=== PATIENT | female | born 1990 | race Caucasian/White ===

== ENCOUNTER 2017-02-07 09:21 | Outpatient (CLI) | payer MEDICAID ==
[~2017-02-07] VITALS: Ht 144.8 cm; Wt 50.9 kg
[~2017-02-07 09:21] MED LIST: CALC60TA2 PO; FERR240T9 PO; IBUP800T25 PO; NITR-58 PO; PREN1TAB79 PO
[2017-02-07 09:41] VITALS: Ht 144.8 cm; Wt 50.9 kg
[2017-02-07 09:43] VITALS: BP 104/60; PULSE 62; RESP 20
[2017-02-07 10:51] LABS: ADD UMIC YES; UR AMORPHOUS CRYSTAL MANY /HPF (NONE SEEN); UR ASCORBIC ACID NEGATIVE (NEGATIVE); UR BILIRUBIN (Dip) NEGATIVE (NEGATIVE); UR BLOOD (Dip) NEGATIVE (NEGATIVE); UR CLARITY CLOUDY (CLEAR); UR COLOR YELLOW (YELLOW); UR GLUCOSE (Dip) NEGATIVE (NEGATIVE); UR KETONES (Dip) NEGATIVE (NEGATIVE); UR LEUKOCYTE ESTERASE (Dip) 1+ Leu/ul (NEGATIVE); UR MUCUS FEW /HPF (NONE SEEN); UR NITRITE (Dip) NEGATIVE (NEGATIVE); UR RBC 3 /HPF (0-5); UR SPECIFIC GRAVITY (Dip) 1.014 (1.003-1.030); UR SQUAMOUS EPITHELIAL CELL FEW /HPF (FEW); UR TOTAL PROTEIN (Dip) NEGATIVE (NEGATIVE); UR UROBILINOGEN (Dip) NEGATIVE (NEGATIVE)
--- NOTE | 2017-02-07 11:48 | TRIAGE ---
OB Triage Datetime Report Generated by CPN: 02/07/2017 11:48 Datetime: 02/07/2017 11:35 Comments: EFM OFF/D/C INSTR GIVEN SEE TRIAGE NOTE Datetime: 02/07/2017 11:00 Stage of : OB Triage Labor Evaluation Frequency: IRRITABILITIES Monitor Mode: External Duration (sec)2399: 5-10 Resting Tone [place]: Relaxed Pain Assessment Pain Scale: 9 Datetime: 02/07/2017 09:55 Vaginal Exam Dilatation (cms): 0.0 Effacement (%): 0 Station: -3 Exam By: L ELVA Vaginal Bleeding: None Cervix, Consistency: Firm Cervix, Position: Posterior Datetime: 02/07/2017 09:50 Stage of : OB Triage Datetime: 02/07/2017 09:40 EGA: 19.5 Datetime: 02/07/2017 09:26 Stage of : OB Triage Labor Evaluation Frequency: IRREG Monitor Mode: External Duration (sec)2399: 10 Heart Rate FHR Baseline Rate: 148 Monitor Mode: External US Pain Assessment Pain Scale: 9 Datetime: 02/07/2017 09:14 Time of Arrival: 02/07/2017 09:14 Chief Complaint: CRAMPING SINCE 6 AM Movement: Present Contractions: Regular Time Contractions Began: 02/07/2017 06:00 Contractions: 10 Rupture of Membranes: Denies Vaginal Bleeding: None Vaginal Discharge: Denies Recent Sexual Intercouse: Denies Abdominal Trauma: Not Applicable Patient Complaints: Contractions Time Provider Notified: 02/07/2017 09:50 Provider Notified: Rogerio Initial Plan: FHT/UA/ 0955 PT GIVEN WATER ENCOURAGED TO DRINK MORE WATER
--- NOTE | 2017-02-07 13:38 | PN ---
Triage Information Date/Time 26 years old female 2 para 119 weeks and 5 days came to triage complaining of cramping heart rate 148 size consistent with dates blood pressure 104/60 pulse 62 respiration 20 temperature 98.2 she was hydrated adequately cramping to slow down patient discharged with recommendation of 6-8 glasses of water a day and follow-up with the [facility] Weeks of Gestation 19 weeks and 5 : 2 Para: 1 Diabetes: none Hypertention: none Objective Vital Signs Date Time Temp Pulse Resp B/P Pulse Ox O2 Delivery O2 Flow Rate FiO2 02/07/17 09:43 98.2 62 20 104/60 97 Room Air Heart Rate: 140's Exam Uterine irritability consistent with 19-20 weeks Results/Medications Results 24 hrs Laboratory Tests Test 02/07/17 09:35 Urine Color YELLOW Urine Clarity CLOUDY A Urine pH 7.0 Urine Specific [place] 1.014 Urine Ketones NEGATIVE Urine Nitrite NEGATIVE Urine Bilirubin NEGATIVE Urine Urobilinogen NEGATIVE Urine Leukocyte Esterase 1+ H Urine Microscopic RBC 3 Urine Microscopic WBC 3 Urine Squamous Epithelial Cells FEW Urine Amorphous Crystals MANY A Urine Mucus FEW A Urine Hemoglobin NEGATIVE Urine Glucose NEGATIVE Urine Total Protein NEGATIVE Assessment/Plan 19 weeks 5 days uterine irritability recommended 6-8 glasses of water and follow-up with the clinic JEAN BALDERAS MD Feb 07, 2017 13:38
== END 2017-02-07 11:40 | disposition home or self-care (01) ==
LOC: OBT 09:21 → L-D 09:21 → OBT 11:40
PROVIDERS: ATTEND Obstetrics & Gynecology
DX: O26.892 Other specified pregnancy related conditions, second trimester (principal); Z3A.19 19 weeks gestation of pregnancy; R10.9 Unspecified abdominal pain
CPT/HCPCS: 81001; Z7500; G0463

== ENCOUNTER 2017-06-21 10:41 | Inpatient (IN) | payer MEDICAID ==
[~2017-06-21] VITALS: Ht 149.9 cm; Wt 60.0 kg
[~2017-06-21 10:41] MED LIST changes: -IBUP800T25 PO; -NITR-58 PO
[2017-06-21] MEDS ORDERED: LACTATED RINGER'S 1,000 ML IV SCH (10:50)
--- NOTE | 2017-06-21 10:53 | TRIAGE ---
OB Triage Datetime Report Generated by CPN: 06/21/2017 10:53 Datetime: 06/21/2017 10:33 Maternal Assessment Level of Consciousness: Fully Conscious DTR's/Clonus: DTRs 2+; No Clonus Headache: Denies Blurred Vision: No Respiratory Effort: Unlabored; Regular Rhythm; Equal Expansion Breath Sounds, Left: Clear and Equal Breath Sounds, Right: Clear and Equal Nausea/Vomiting: Denies RUQ Epigastric Pain: Denies Facial Edema: None Fall Risk Assessment History of Falling: (0) No Secondary Diagnosis: (0) No Ambulatory Aid: (0) Bedrest/Nurse Assist IV Therapy: (0) No Gait: (0) Normal/Bedrest/Immobile Mental Status: (0) Oriented to Own Ability Fall Score: 0 Fall Risk Score Definition: No Risk: No action required Datetime: 06/21/2017 10:30 Time of Arrival: 06/21/2017 10:30 Arrived By: Wheelchair Arrived From: Home Chief Complaint: 39 WEEKS CAME IN C/O UC'S SINCE THIS MORNING AT 0800. PT UNCOMFORTABLE. Movement: Present Contractions: Regular Time Contractions Began: 06/21/2017 08:00 Contractions: 5 MIN Rupture of Membranes: Denies Vaginal Discharge: Denies Recent Sexual Intercouse: Denies Abdominal Trauma: Not Applicable Additional Patient Complaints: NONE Time Provider Notified: 06/21/2017 10:35 Provider Notified: ANDREY Initial Plan: VE
[2017-06-21 10:55] VITALS: BP 128/66; PULSE 64; RESP 18
[2017-06-21 10:56] VITALS: Ht 149.9 cm; Wt 60.0 kg
[2017-06-21 11:00] LABS: BASOPHILS % 0.2 % (0.0-2.0); EOSINOPHILS # 0.1 10^3/ul (0.0-0.5); EOSINOPHILS % 0.6 % (0.0-7.0); HEMATOCRIT 40.1 % (37.0-47.0); HEMOGLOBIN 13.7 g/dl (12.0-16.0); LYMPHOCYTES # 2.5 10^3/ul (0.8-2.9); LYMPHOCYTES % 23.1 % (15.0-51.0); MEAN CORPUSCULAR HEMOGLOBIN 28.1 pg (29.0-33.0); MEAN CORPUSCULAR HGB CONC 34.2 g/dl (32.0-37.0); MEAN CORPUSCULAR VOLUME 82.3 fl (82.0-101.0); MONOCYTE # 0.5 10^3/ul (0.3-0.9); MONOCYTES % 4.8 % (0.0-11.0); NEUTROPHIL # 7.6 10^3/ul (1.6-7.5); NEUTROPHILS % 70.9 % (39.0-77.0); PLATELET COUNT 201 10^3/UL (140-415); RED BLOOD COUNT 4.87 10^6/ul (4.20-5.40); RED CELL DISTRIBUTION WIDTH 15.1 % (11.5-14.5); WHITE BLOOD COUNT 10.7 10^3/ul (4.8-10.8)
[2017-06-21] MEDS ORDERED: AMPICILLIN 2 GM/NS (PMX) 100 ML IV ONE (11:00)
[2017-06-21] MEDS ORDERED: OXYTOCIN 30 UNITS/LR 500 ML IV PRN ×2 (11:00→15:30)
[2017-06-21] MEDS ORDERED: BUTORPHANOL 2 MG INJ IV PRN (11:00)
[2017-06-21] MEDS ORDERED: LIDOCAINE 1% (MPF) 30 ML INJ INJ PRN (11:00)
[2017-06-21] MEDS ORDERED: METHYLERGONOVINE 0.2 MG INJ IM PRN ×2 (11:00→15:30)
[2017-06-21] MEDS ORDERED: CARBOPROST 250 MCG INJ IM PRN ×2 (11:00→15:30)
[2017-06-21] MEDS ORDERED: HYDROCODONE/APAP (5/325) TAB PO PRN (11:00)
[2017-06-21] MEDS ORDERED: IBUPROFEN 600 MG TAB PO PRN (11:00)
[2017-06-21] MEDS ORDERED: MISOPROSTOL 200 MCG TAB PR PRN ×2 (11:00→15:30)
[2017-06-21] MEDS: OXYTOCIN 30 UNITS/LR 500 ML IV SCH ×2 (11:05→11:22)
[2017-06-21 11:26] LABS: INR 0.94; PROTIME 12.7 Sec (11.9-14.9)
[2017-06-21 11:27] LABS: PARTIAL THROMBOPLASTIN TIME 29.4 Sec (25.0-35.0)
--- NOTE | 2017-06-21 11:40 | HP ---
Date/Time of Note Date/Time of Note DATE: 06/21/17 TIME: 11:31 OB - History Hx of Present Free Text/Dictation June 21, 2017 OB history and physical This patient is a 26 years old 2 para 1 with estimated date of confinement of June 29, 2017 which makes her 38 weeks and 6 days. She came in labor and delivery area in active labor. In reviewing her past medical history she had 1 spontaneous vaginal delivery in the past. No major medical condition was mentioned in her chart no surgeries no allergy Estimated Due Date: Jun 29, 2017 : 2 Para: 1 Care: Good Care Obstetrical Complications: None Medical Complications: None Past Family/Social History * Past Medical, Surgical, Family and Obstetric Histories reviewed from chart. OB Admission Exam Vital Signs Vital Signs Vital Signs Date Time Temp Pulse Resp B/P Pulse Ox O2 Delivery O2 Flow Rate FiO2 06/21/17 10:55 98.7 64 18 128/66 99 Room Air Physical Exam HEENT: WNL Heart: Rhythm Normal Lungs: Clear Abdomen: WNL Extremities: Normal Reflexes: Normal Cervical Dilatation: 9cm Effacement: 100% Station: 0 Membranes: Intact Amniotic Fluid: Clear Heart Rate: 140's Accelerations: Accelerations Present (22184) Decelerations: No Decelerations Varibility: Moderate Contractions on Admission: < 5 Minutes Apart Intensity: Moderate Last 72 hours Lab Results CBC & BMP 06/21/17 10:14 OB Assessment/Plan Reason for admission: active labor Other plan: Laboratory Tests Test 06/21/17 10:14 White Blood Count 10.710^3/ul Red Blood Count 4.8710^6/ul Hemoglobin 13.7g/dl Hematocrit 40.1% Mean Corpuscular Volume 82.3fl Mean Corpuscular Hemoglobin 28.1pg Mean Corpuscular Hemoglobin Concent 34.2g/dl Red Cell Distribution Width 15.1% Platelet Count 74578^3/UL Mean Platelet Volume 11.0fl Neutrophils % 70.9% Lymphocytes % 23.1% Monocytes % 4.8% Eosinophils % 0.6% Basophils % 0.2% Nucleated Red Blood Cells % 0.0/100WBC Neutrophils # 7.610^3/ul Lymphocytes # 2.510^3/ul Monocytes # 0.510^3/ul Eosinophils # 0.110^3/ul Basophils # 0.010^3/ul Nucleated Red Blood Cells # 0.010^3/ul Prothrombin Time 12.7Sec Prothrombin Time Ratio 1.0 INR International Normalized Ratio 0.94 Activated Partial Thromboplast Time 29.4Sec Current Medications Medications (Trade) Dose Ordered Sig/Joey Route PRN Reason Start Time Stop Time Status Last Admin Dose Admin Lactated Ringer's 1,000 ml @ 125 mls/hr Q8H IV 06/21/17 10:50 06/21/17 11:05 Ampicillin (Ampicillin 2 Gm/ NS (Pmx)) 100 ml @ 100 mls/hr ONCE ONCE IV 06/21/17 11:00 06/21/17 11:59 Butorphanol Tartrate (Stadol) 2 mg Q2H PRN IV PAIN 06/21/17 11:00 Lidocaine 30 ml 30 ml ONCE PRN INJ EPISIOTOMY/TEARING 06/21/17 11:00 Oxytocin/Lactated Ringer's 500 ml @ 125 mls/hr ONCE IV 06/21/17 11:00 06/21/17 11:22 Ibuprofen (Motrin) 600 mg ONCE PRN PO Mild Pain (Pain Score 1-3) 06/21/17 11:00 Acetaminophen/ Hydrocodone Bitart 2 tab 2 tab ONCE PRN PO Moderate to Severe Pain (4-10) 06/21/17 11:00 Oxytocin/Lactated Ringer's 500 ml @ 0 mls/hr ONCE PRN IV For Hemorrhage Management 06/21/17 11:00 Methylergonovine Maleate (Methergine) 0.2 mg ONCE PRN IM VAGINAL BLEEDING 06/21/17 11:00 Carboprost Tromethamine (Hemabate) 250 mcg ONCE PRN IM VAGINAL BLEEDING 06/21/17 11:00 Misoprostol (Cytotec) 1,000 mcg ONCE PRN CA VAGINAL BLEEDING 06/21/17 11:00 PAPA LLOYD MD Jun 21, 2017 11:40
--- NOTE | 2017-06-21 12:14 | LDN ---
Date/Time of Note Date/Time of Note DATE: 06/21/17 TIME: 12:08 Delivery Summary Normal spontaneous vaginal delivery of a baby girl from OA position shoulders delivered with no difficulty rest of the baby's body followed cord clamped after stopped pulsation placenta spontaneous expulsion inspected complete. Perineal and vaginal inspection no laceration, at the end of procedures uterus was firm, bleeding 200 cc, patient received 30 units of Pitocin through the IV infusion. Weeks of Gestation 38 weeks 6 day Placenta Delivered: Spontaneously Meconium: none Episiotomy: No Laceration repair: None Anesthesia type: None Sponge & Needle done & correct: Yes All needle counts correct: Yes Any foreign bodies felt in the: No Problems: Infant Delivery Information Sex Sex: female Apgars 1 Minute: 9 5 Minute: 9 Suctioning Nose & mouth suctioned at david: Yes Delee suction performed: No Umbilical Cord Umbilical cord with: 3 Vessels Cord presentations: nuchal cord Cord Blood was obtained: Yes JENA BALDERAS MD Jun 21, 2017 12:14
[2017-06-21 14:30] VITALS: BP 109/67
[2017-06-21] MEDS: LACTATED RINGER'S 1,000 ML IV* SCH ×2 (15:52→23:22)
[2017-06-21 16:00] VITALS: BP 100/62; PULSE 70; RESP 18
[2017-06-21] MEDS ORDERED: LANOLIN 7 GM TUBE TOP PRN (17:00)
[2017-06-21] MEDS: IBUPROFEN 600 MG TAB PO SCH (18:00)
[2017-06-21 20:00] VITALS: BP 106/59; PULSE 80; RESP 18
[2017-06-22] MEDS: IBUPROFEN 600 MG TAB PO SCH ×5 (00:27→23:47)
[2017-06-22 04:00] VITALS: BP 98/55; PULSE 54; RESP 17
[2017-06-22] MEDS: LACTATED RINGER'S 1,000 ML IV* SCH ×3 (06:13→23:22)
[2017-06-22 07:45] LABS: BASOPHILS % 0.3 % (0.0-2.0); EOSINOPHILS # 0.1 10^3/ul (0.0-0.5); EOSINOPHILS % 0.9 % (0.0-7.0); HEMATOCRIT 36.3 % (37.0-47.0); HEMOGLOBIN 12.4 g/dl (12.0-16.0); LYMPHOCYTES # 1.9 10^3/ul (0.8-2.9); LYMPHOCYTES % 19.9 % (15.0-51.0); MEAN CORPUSCULAR HEMOGLOBIN 28.4 pg (29.0-33.0); MEAN CORPUSCULAR HGB CONC 34.2 g/dl (32.0-37.0); MEAN CORPUSCULAR VOLUME 83.3 fl (82.0-101.0); MEAN PLATELET VOLUME 11.1 fl (7.4-10.4); MONOCYTE # 0.8 10^3/ul (0.3-0.9); MONOCYTES % 8.4 % (0.0-11.0); NEUTROPHIL # 6.6 10^3/ul (1.6-7.5); PLATELET COUNT 194 10^3/UL (140-415); RED BLOOD COUNT 4.36 10^6/ul (4.20-5.40); RED CELL DISTRIBUTION WIDTH 15.3 % (11.5-14.5); WHITE BLOOD COUNT 9.4 10^3/ul (4.8-10.8)
[2017-06-22 08:15] VITALS: BP 113/62; PULSE 77; RESP 16
--- NOTE | 2017-06-22 09:44 | QN ---
Documentation Comment Post normal vaginal delivery day 1 Afebrile vital signs are stable Abdomen soft uterus firm lochia normal extremity normal plan of a.m. discharge discussed. JEAN BALDERAS MD Jun 22, 2017 09:44
[2017-06-22 16:03] VITALS: BP 106/66; PULSE 62; RESP 18
[2017-06-22 20:00] VITALS: BP 108/59; PULSE 60; RESP 20
[2017-06-22] MEDS ORDERED: INFLUENZA VIRUS VACCINE 0.5 ML SYG IM* ONE (21:00)
[2017-06-23 04:00] VITALS: BP 103/59; PULSE 52; RESP 18
[2017-06-23] MEDS: IBUPROFEN 600 MG TAB PO SCH ×2 (06:31→12:25)
[2017-06-23] MEDS: LACTATED RINGER'S 1,000 ML IV* SCH (06:32)
[2017-06-23 09:00] VITALS: BP 108/71; PULSE 68; RESP 16
--- NOTE | 2017-06-23 12:15 | PD.PPDC ---
[employer] Discharge Instruction Condition Patient Condition: Good Diet Diet: Resume Regular Diet Activity/Restrictions Activity: Normal Activity May Shower Restrictions: No Exercising No Lifting No Driving No Sexual Activity Nothing in the Vagina No [place] No Tampons, douche Follow-up Follow-up with Physician: 2, Week/Weeks Provider Information: instructions given recommended to make appointment to be seen at the clinic in 2 weeks Return to clinic for [employer] Instructions: Fever greater than 101 Chills Worsening abdominal pain Excessive Vaginal Bleeding More than 2 pads per hour Unable to tolerate diet OB Instructions: Breast Tenderness Depression Blurried Vision Headache JEAN BALDERAS MD Jun 23, 2017 12:15
--- NOTE | 2017-06-23 12:17 | DS ---
Date/Time of Note Date/Time of Note DATE: 06/23/17 TIME: 12:16 Discharge Summary Admission/Discharge Info Admit Date/Time Jun 21, 2017 at 10:41 Discharge Date/Time June 23, 2017 at 1250 Discharge Diagnosis Day 2 post normal vaginal delivery Patient Condition: Good Procedures Normal vaginal delivery Hx of Present Illness Term admitted to the hospital for delivery Hospital Course Satisfactory uneventful Home Meds Reported Medications Calcium Gluconate (Calcium Gluconate) 650 Mg Tablet, 650 MG PO DAILY, TAB 11/04/15 Ferrous Gluconate (Iron) 1 Tab Tablet, 1 TAB PO DAILY, TAB 11/04/15 Vit W-Ca,Fe,FA(<1 mg) ( Vitamins) 1 Each Tablet, 1 EACH PO DAILY, TAB 11/04/15 Follow-up Plan instruction given recommended to make appointment to be seen at the clinic in 2 weeks Primary Care Provider Care Physician No Primary Time spent on discharge: < 30 minutes JEAN BALDERAS MD Jun 23, 2017 12:17
== END 2017-06-23 15:26 | disposition home or self-care (01) | DRG 775 ==
LOC: L-D 10:41 → PP1 14:44
PROVIDERS: ADMIT Obstetrics & Gynecology; ATTEND Obstetrics & Gynecology
PROC: 10E0XZZ Delivery of Products of Conception, External Approach (ICD-10-PCS; principal; 2017-06-21)
PROC: 3E033VJ Introduction of Other Hormone into Peripheral Vein, Percutaneous Approach (ICD-10-PCS; 2017-06-21)
DX: O69.81X0 Labor and delivery complicated by cord around neck, without compression, not applicable or unspecified (principal); Z37.0 Single live birth; Z3A.38 38 weeks gestation of pregnancy
CPT/HCPCS: 85025; 85610; 85730; 86592; 86900; 86901; 87340; 90686; G0463; J2590; J7120